=== PATIENT | female | born 1970 | race African-American/Black ===

== ENCOUNTER → 2018-11-28 | Outpatient (REF) | payer OTHER | LOC: ZZSENDIN 13:13 | PROVIDERS: ATTEND Family Medicine | DX: R10.817 Generalized abdominal tenderness (principal); R82.998 Other abnormal findings in urine | CPT/HCPCS: 81001; 87088 ==

== ENCOUNTER → 2018-11-28 | Outpatient (CLI) | payer OTHER ==
[~2018-11-28] MED LIST: IOPAMIDOL 61% 75 ML INFUS BTL 75 ML ONE
--- NOTE | 2018-11-28 14:16 | RADIOLOGY IMAGING REPORT ---
FACILITY: [facility] [place] PATIENT NAME: Irma Colbert : 1970 MR: [id number] V: [id number] EXAM DATE: ORDERING PHYSICIAN: TY JENKINS TECHNOLOGIST: Location: [facility] [place] Patient: Irma Colbert : 1970 Visit/Account:[id number] Date of Sevice: 11/28/2018 CT ABDOMEN PELVIS W & W/O CONTRAST HISTORY: Left lower quadrant pain and back pain TECHNIQUE: Axial images acquired through the abdomen/pelvis both with and without IV contrast.. Polly nal and sagittal reformatting also performed. One of the following dose optimization techniques was utilized in the performance of this exam: Automated exposure control; adjustment of the mA and/or kV according to the patient's size; or use of an iterative reconstruction technique. Specific details can be referenced in the facility's radiology CT exam operational policy. CONTRAST: 90 mL [id number] COMPARISON: None. FINDINGS: Visualized lung bases: 3 mm pleural calcification seen left lung base. Lung parenchyma is well-aerat ed. Hepatobiliary: Negative. Spleen: Negative. Adrenals: Negative. Pancreas: Negative. Kidneys ureters and bladder: Kidneys ureters and urinary bladder are unremarkable without evidence of stones or obstruction. Genitalia: There is an IUD in place in the uterus. There is a large hypodense round mass in the lowe r posterior uterine segment which measures 6.7 x 5.9 x 5.2 cm diameter. GI: Negative. No evidence of diverticuli. The appendix is visualized, retrocecal, and normal. Vessels/spaces/nodes: Negative. Bones/soft tissues: Negative. No evidence of degenerative disc disease radiographically. Additional findings: None pertinent. IMPRESSION: Large myometrial mass located in the posterior lower uterine segment measuring 6.7 cm maximum dimensi on. Statistically this likely represents a large uterine fibroid, possibly necrotic, but imaging sonia acteristics are nonspecific. This might represent the etiology of patient's symptoms since everything else on this study is unremarkable.. Results were called to TY JENKINS at 11/28/2018 1:49 PM. Report Dictated By: Alexei Whitney MD at 11/28/2018 1:49 PM Report E-Signed By: Alexei Whitney MD at 11/28/2018 2:12 PM WSN:[id number]
== END ==
LOC: CT 12:34
PROVIDERS: ATTEND Family Medicine
DX: N85.8 Other specified noninflammatory disorders of uterus (principal)
CPT/HCPCS: 74178; Q9967